=== PATIENT | male | born 1955 | race Caucasian/White ===

== ENCOUNTER 2016-09-15 10:21 | Inpatient (IN) | payer OTHER ==
[2016-09-15] VITALS (20 sets, daily range): BP systolic 95–126; BP diastolic 54–91; PULSE 68–93; RESP 10–23; Ht 180.3 cm; Wt 84.0 kg
[~2016-09-15] VITALS: Ht 180.3 cm; Wt 84.0 kg
[2016-09-15 10:55] LABS: ADD SCAN DIFF NO
[2016-09-15 10:58] LABS: BASOPHIL # 0.1 10^3/ul (0.0-0.1); BASOPHILS % 0.6 % (0.0-2.0); EOSINOPHILS # 0.3 10^3/ul (0.0-0.5); EOSINOPHILS % 3.5 % (0.0-7.0); HEMATOCRIT 43.5 % (42.0-52.0); HEMOGLOBIN 14.4 g/dl (14.0-18.0); LYMPHOCYTES # 2.2 10^3/ul (0.8-2.9); LYMPHOCYTES % 27.5 % (15.0-51.0); MEAN CORPUSCULAR HEMOGLOBIN 29.7 pg (29.0-33.0); MEAN CORPUSCULAR HGB CONC 33.1 g/dl (32.0-37.0); MEAN CORPUSCULAR VOLUME 89.7 fl (82.0-101.0); MEAN PLATELET VOLUME 11.1 fl (7.4-10.4); MONOCYTE # 0.6 10^3/ul (0.3-0.9); MONOCYTES % 7.2 % (0.0-11.0); NEUTROPHIL # 4.9 10^3/ul (1.6-7.5); NEUTROPHILS % 60.8 % (39.0-77.0); PLATELET COUNT 216 10^3/UL (140-415); RED BLOOD COUNT 4.85 10^6/ul (4.70-6.10); RED CELL DISTRIBUTION WIDTH 13.9 % (11.5-14.5); WHITE BLOOD COUNT 8.1 10^3/ul (4.8-10.8)
[2016-09-15 11:12] LABS: ALBUMIN 4.6 g/dl (3.3-4.9)
[2016-09-15 11:13] LABS: POTASSIUM 4.7 mmol/L (3.5-5.1)
[2016-09-15 11:15] LABS: ALBUMIN/GLOBULIN RATIO 1.43; BILIRUBIN,INDIRECT 0.3 mg/dl (0-1.1); BILIRUBIN,TOTAL 0.3 mg/dl (0.2-1.3); TOTAL PROTEIN 7.8 g/dl (6.1-8.1)
[2016-09-15 11:18] LABS: CALCIUM 9.4 mg/dl (8.4-10.2); CREATININE 0.77 mg/dl (0.61-1.24)
[2016-09-15 11:24] LABS: INR 0.97; PROTIME 12.9 Sec (12.2-14.2)
[2016-09-15] MEDS ORDERED: MIDAZOLAM 1 MG/ML 2 ML INJ ONE ×2 (11:27→11:54)
[2016-09-15] MEDS ORDERED: LIDOCAINE 1% (MDV) 20 ML INJ ONE (11:27)
[2016-09-15] MEDS ORDERED: IODIXANOL LOCM 100 ML BTL ONE (11:27)
[2016-09-15] MEDS ORDERED: HEPARIN 1000 UNITS/ML 10 ML INJ ONE (11:27)
[2016-09-15] MEDS ORDERED: FENTAnyl 50 MCG/ML VIAL ONE (11:27)
[2016-09-15] MEDS ORDERED: VERAPAMIL 5 MG INJ ONE (11:32)
[2016-09-15] MEDS ORDERED: NITROGLYCERIN (IC) 100 MCG/ML INJ ONE (11:32)
[2016-09-15] MEDS ORDERED: SOD CHLORIDE 0.9% 500 ML ONE (11:54)
[2016-09-15] MEDS ORDERED: IOHEXOL 350MG/ML 50 ML BTL ONE (12:01)
[2016-09-15] MEDS ORDERED: ASPI81TA3 PO (12:20)
[2016-09-15] MEDS ORDERED: NICO1PAT6 TD (12:20)
[2016-09-15] MEDS ORDERED: ATOR40TA68 PO (12:20)
[2016-09-15] MEDS ORDERED: ONDA4SOL IV (12:20)
[2016-09-15] MEDS ORDERED: CARV3.1260 PO (12:20)
[2016-09-15] MEDS ORDERED: ACET-2047 PO (12:20)
[2016-09-15] MEDS ORDERED: NITR1PAT46 TD (12:20)
[2016-09-15] MEDS ORDERED: PANT40TA4 PO (12:20)
[2016-09-15] MEDS ORDERED: METO-448 PO (12:20)
[2016-09-15] MEDS ORDERED: TICAGRELOR 90 MG TABLET ONE (12:30)
[2016-09-15] MEDS ORDERED: ASPIRIN 325 MG TAB ONE (12:30)
[2016-09-15 12:34] LABS: PARTIAL THROMBOPLASTIN TIME 28.1 Sec (25.0-35.0)
[2016-09-15] MEDS ORDERED: SOD CHLORIDE 0.9% 1,000 ML IV SCH (12:48)
[2016-09-15] MEDS ORDERED: ZOLPIDEM 5 MG TAB PO PRN (13:00)
[2016-09-15] MEDS ORDERED: OXYCODONE/ACETAMINOPHEN (5/325) TAB PO PRN (13:00)
[2016-09-15] MEDS ORDERED: AL HYDROX/MG HYDROX/SIMETH 30 ML CUP PO PRN (13:00)
[2016-09-15] MEDS ORDERED: ACETAMINOPHEN 325 MG TAB PO PRN (13:00)
[2016-09-15] MEDS ORDERED: ONDANSETRON 4 MG INJ IV PRN (13:00)
--- NOTE | 2016-09-15 13:59 | CARRPT ---
DATE OF PROCEDURE: 09/15/2016 TYPE OF PROCEDURE: 1. Left heart catheterization. 2. Coronary angiography. 3. The measure of left ventricular end diastolic pressure. 4. Percutaneous transluminal coronary angioplasty with placement of drug-eluting stent x1 to proxim al to mid LAD, 3.0 x 28 mm compliant. 5. Percutaneous transluminal coronary angioplasty with placement of drug-eluting stent x1 to mid ci rcumflex 2.5 x 8 mm Hallock surgery. ATTENDING PHYSICIAN: Tito Jameson MD REFERRING PHYSICIAN: Dr. Elton Heller. TYPE OF ANESTHESIA: Conscious and local. INDICATION: Non-ST elevation myocardial infarction. BRIEF HISTORY: Mr. Rice is a 61-year-old male with history of hypertension, dyslipidemia, ina oing tobacco usage, who initially presented to [facility] with complaints of subst ernal chest pain and subsequently ruled in for a non-ST elevation myocardial infarction. The patien t subsequently placed on maximal medical therapy and has been transferred to [facility] in order to undergo left heart catheterization to assess for the possibility of significant ob structive coronary artery disease lending to symptoms of chest pain and subsequent non-ST myocardial infarction. PROCEDURE: After informed consent was obtained, the patient went to [facility] catheterization lab where his right radial area was prepped and draped in usual sterile fashio n. 2% lidocaine was infiltrated in order to achieve adequate local anesthesia. With modified Seldi nger technique, the right radial artery was cannulated and a 6-Dutch arterial sheath was placed. A 5-Dutch JL3.5 catheter was used to cannulate the left main coronary ostium. With contrast injecti on, multiple views of the left coronary arterial system were obtained. JL4 guidewire and JR4 was us ed to cannulate the right coronary arterial ostium. With contrast injection, multiple views of the right coronary arterial system obtained. JR4 was removed over a guidewire and a 6-Dutch pigtail wa s passed down the ascending aorta and placed in LV, left ventricular end-diastolic pressure was richie ured, pulled back across the aortic valve to assess for significant gradient, which there was not an d removed. Subsequently, at this time we moved directly to interventional procedure given obstructi ve lesions. The patient received an additional 3000 units of heparin in addition to the 5000 units h e received with his radial cocktail in order to achieve adequate pre-interventional ACT. A 6-Dutch XB LAD3 was used to cannulate the left main coronary ostium. A 0.014 balance middleweight guidewir e was passed distal to the lesion in the LAD. The lesion was ballooned with a 2.0 x 12 mm balloon u p to 20 atmospheres. The balloon was removed and the lesion was stented with a 3.0 x 28 mm drug-elu ting stent deployed at 16 atmospheres, post-dilated with the stent delivery system up to 20 atmosphe res. Stent delivery system was removed. Followup angiogram was obtained revealing excellent deploy ment of stent, ARJUN 3 flow throughout the vessel, no signs of complication including perforation or dissection. Subsequently, at this time, the wire was pulled back and redirected to the lesion in th e mid circumflex. Once it passed this lesion, this lesion was directly stented with a 2.35 x 8 mm Sy nergy drug-eluting stent deployed at 12 atmospheres, postdilated with the stent delivery system up t o 14 atmospheres. The stent delivery system was removed. Followup angiogram was obtained revealing excellent result deployment of the stent, ARJUN 3 flow throughout the vessel, no signs of complicati on including perforation or dissection. Subsequently, at this time, the interventional guide and gu idewire were removed. The patient's sheath was removed. TR band was applied. This completed the p rocedure. There were no noted complications. FINDINGS: Coronary angiography: Left main 4 mm and also 20% stenosis. The LAD proximally is a 3.5 mm vessel and has a long tubular stenosis up to approximately 95%. The LAD has a paucity of diagonals, some v rosamaria small sub 2 mm vessels in the mid portion with no significant focal stenoses. The patient's cir cumflex proximally is a 3 mm vessel and quickly separates into the obtuse marginal branch nearly 3 m m significant focal stenoses, and the circulatory AV groove and has a very focal 80% to 90% stenosis . There is another mid branching obtuse marginal 2 mm vessel with no significant focal stenoses. T he right coronary artery proximally is a 3.5 mm vessel and in the mid portion has tandem 70% to 80% stenosis followed by an ectatic region in the mid portion between the stenoses. Coronary artery is a dominant vessel, gives off a very small PDA sub 2 mm with no significant focal stenoses and a 2.5 mm posterolateral branch with no significant focal stenoses, that can be seen at the posterolateral branch distally it gives a distal collateral flow to the LAD distribution. ____ much of the territo ry at risk and additionally recently from the coronal branch. Measure of left ventricular diastolic pressure of 17 to 19. No significant aortic stenosis by gradi ent. PTCA AND STENT PLACEMENT: Prior to PTCA and stent placement within the patient's LAD. The patient had a long tubular 95% stenosis. Post-PTCA and stent placement, no residual stenosis, but after fur ther review, it seems the patient does have a very small waist in mid portion of the stent and there fore, a staged procedure to consider additional post-steal with no signs of complication including p erforation or dissection and ARJUN 3 flow. PTCA AND STENT PLACEMENT WITHIN THE CIRCUMFLEX. Prior to PTCA and stent placement within the circumf dnaiele, the patient had a focal 80 to 90% stenosis. Post-PTCA and stent placement, no residual stenosi s, ARJUN 3 flow throughout the vessel, no signs of complication including perforation, dissection. TOTAL FLUOROSCOPY TIME: 12.3 minutes. TOTAL CONTRAST: 140 mL. IMPRESSION: 1. Multivessel obstructive coronary artery disease involving a long tubular lesion in the patient's LAD, culprit vessel for ykm-VJ-ltlfjbdld myocardial infarction, very focal lesion in the circumflex and then tandem lesions in the right coronary artery. 2. Successful percutaneous transluminal coronary angioplasty and stent placement x1 to the LAD and x1 to circumflex. 3. Mildly elevated left heart filling pressures, ____ 79. 4. No significant aortic stenosis by gradient. RECOMMENDATIONS: In light of procedure and findings at this time would: 1. Maintain patient on Brilinta 90 mg 1 tab p.o. b.i.d. times at least 1 year. 2. Aspirin 81 mg 1 tab p.o. daily indefinitely. 3. Maximize medical management. 4. Aggressive risk factor reduction. 5. The patient admitted to the ICU for post-intervention observation and continued management of pr esenting symptoms. 6. Depending on ongoing symptoms will be scheduled for a staged procedure at a later date at which time we can intervene upon this patient's right coronary artery and additionally will reassess the p atient's LAD stent and decide if further post-dilatation would be beneficial. ADDENDUM: The patient received 60 minutes of moderate conscious sedation. Dictated By: TITO MARTINEZ/FILIPPO Conf#: [id number] DID#: [id number] CC: ELTON HELLER MD;*EndCC*
--- NOTE | 2016-09-15 14:15 | HP ---
DATE OF ADMISSION: 09/15/2016 REASON FOR ADMISSION: Status post non-ST elevation myocardial infarction. HISTORY OF PRESENT ILLNESS: The patient is a 61-year-old [place] male with a history of nicotine d ependency who smokes up to 2 packs a day, who has not seen a physician for a long time. He presente d to [facility] on 09/11/2016 with concerning left-sided chest pain. Initial tropon in in the ER was negative, but a followup troponin was 2.6, consistent with non-ST elevation myocard ial infarction. The patient was placed on Lovenox 1 mg/kg subcutaneous q. 12, aspirin, statin, nitr oglycerin patch, O2 support and also we placed him on a nicotine patch, as he wanted to go smoke. Ivone Jameson and Dr. Lombardi were consulted and recommended cardiac catheterization. The patient's ches t pain resolved and today he presented to [facility] for cardiac catheterization. Upon discussion with Dr. Jameson, the patient had multivessel disease. The patient underwent stent ing of the LAD and circumflex. The patient overall tolerated the procedure well. He also has lazaro ry artery disease on the RCA. Further intervention may be needed in the future. The procedure was done via right arm radial approach. The patient tolerated the procedure well. No complications. Yahir venegas is currently in the intensive care unit, chest pain free. The patient is admitted for further care. PAST MEDICAL HISTORY: Includes nicotine dependency. MEDICATIONS: He previously took only aspirin p.r.n. ALLERGIES: NO KNOWN DRUG ALLERGIES. SOCIAL HISTORY: He smokes 1.5 to 2 packs a day. Alcohol socially, about 2 to 3 drinks on special o ccasions. IVDA he denies. FAMILY HISTORY: Mother at age 83. Father had cardiac problems. He at age 58 from car diac problems. He had cardiomyopathy. The patient is +2. 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 The patient denies any weight. Patient has never had a colonoscopy. CURRENT MEDICATIONS: Include: 1. Tylenol. 2. Percocet 3. Ambien. 4. Milk of Magnesia. 5. Zofran. 6. Normal saline at 75 mL an hour. PHYSICAL EXAMINATION: VITAL SIGNS: Blood pressure 119/73, pulse 72, respirations 14, saturations 100%. The patient is on 2 liters nasal cannula. GENERAL: Patient is in no acute distress. HEENT: Normocephalic, atraumatic. NECK: No JVD. CARDIOVASCULAR: S1, S2, regular rate. LUNGS: Clear. ABDOMEN: Soft, nontender. EXTREMITIES: Right upper extremity in a special pressure instrument to his right radial area. No a ctive bleeding. Lower extremities no clubbing, cyanosis, or edema. LABORATORY: This was done prior to the procedure: White count 8.1, hemoglobin 14.4, hematocrit 44, platelet count 216, neutrophils 61%, lymphocytes 28%. Chemistry: Sodium 141, potassium 4.7, chlori de 101, bicarbonate 28, BUN is 18, creatinine 0.77, glucose of 107, AST 110, ALT elevated at 132, al kaline phosphatase 72, total protein 7.8, albumin 4.6. INR 0.97. ASSESSMENT AND PLAN: This is a 61-year-old [place] male with a history of nicotine dependency, who presented with a non-ST elevation myocardial infarction, now status post cardiac stenting. 1. Non-ST elevation myocardial infarction. The patient with extensive coronary artery disease, sta tus post stenting of the LAD and circumflex. Further management per Dr. Jameson. The patient likel y will need Plavix or Brilinta, then aspirin, statins, and beta blockers. 2. Nicotine dependency. Continue nicotine patch. Advised him again to stop smoking. 3. Elevated liver function tests. This may be due to statins. Observe. 4. ICU monitoring overnight. The patient is status post Brilinta and aspirin, and received it toda y. 5. Will monitor the patient's symptoms closely. Case discussed with Dr. Jameson. We will follow. Dictated By: ZACHARY GUERRERO/FILIPPO Conf#: [id number] DID#: [id number]
--- NOTE | 2016-09-15 17:40 | RADRPT ---
Vent Rate: 74 bpm RR Interval: 0 msec DE Interval: 146 msec QRS Duration: 88 msec QT Interval: 322 msec QTC Interval: 357 msec P-R-T [place]: 64 - 64 - 78 degrees Normal sinus rhythm Nonspecific T wave abnormality Abnormal ECG Electronically Signed By: Jered Beck [id number]
[2016-09-16] VITALS (25 sets, daily range): BP systolic 91–115; BP diastolic 56–76; PULSE 59–76; RESP 12–25
[2016-09-16 05:28] LABS: ADD SCAN DIFF NO
[2016-09-16 05:34] LABS: BASOPHILS % 0.3 % (0.0-2.0); EOSINOPHILS # 0.2 10^3/ul (0.0-0.5); EOSINOPHILS % 2.6 % (0.0-7.0); HEMATOCRIT 38.9 % (42.0-52.0); HEMOGLOBIN 12.8 g/dl (14.0-18.0); LYMPHOCYTES # 1.5 10^3/ul (0.8-2.9); LYMPHOCYTES % 22.4 % (15.0-51.0); MEAN CORPUSCULAR HEMOGLOBIN 29.2 pg (29.0-33.0); MEAN CORPUSCULAR HGB CONC 32.9 g/dl (32.0-37.0); MEAN CORPUSCULAR VOLUME 88.8 fl (82.0-101.0); MEAN PLATELET VOLUME 11.8 fl (7.4-10.4); MONOCYTE # 0.7 10^3/ul (0.3-0.9); MONOCYTES % 10.7 % (0.0-11.0); NEUTROPHIL # 4.1 10^3/ul (1.6-7.5); NEUTROPHILS % 63.5 % (39.0-77.0); PLATELET COUNT 174 10^3/UL (140-415); RED BLOOD COUNT 4.38 10^6/ul (4.70-6.10); RED CELL DISTRIBUTION WIDTH 14.3 % (11.5-14.5); WHITE BLOOD COUNT 6.5 10^3/ul (4.8-10.8)
[2016-09-16 05:49] LABS: ALBUMIN 3.3 g/dl (3.3-4.9)
[2016-09-16 05:52] LABS: BILIRUBIN,INDIRECT 0.2 mg/dl (0-1.1); BILIRUBIN,TOTAL 0.2 mg/dl (0.2-1.3); TOTAL PROTEIN 5.8 g/dl (6.1-8.1)
[2016-09-16 05:53] LABS: POTASSIUM 3.6 mmol/L (3.5-5.1)
[2016-09-16 05:55] LABS: CREATININE 0.79 mg/dl (0.61-1.24)
[2016-09-16 05:56] LABS: CALCIUM 8.5 mg/dl (8.4-10.2)
[2016-09-16 06:07] LABS: CK-MB 1.49 ng/ml (0.0-2.4)
[2016-09-16 06:09] LABS: TROPONIN-I 0.577 ng/ml (0.00-0.12)
[2016-09-16] MEDS: ASPIRIN 81 MG TAB PO SCH (09:52)
[2016-09-16] MEDS: TICAGRELOR 90 MG TABLET PO SCH ×2 (09:53→20:45)
--- NOTE | 2016-09-16 11:28 | RADRPT ---
Vent Rate: 64 bpm RR Interval: 0 msec MT Interval: 144 msec QRS Duration: 98 msec QT Interval: 370 msec QTC Interval: 381 msec P-R-T [place]: 70 - 64 - 95 degrees Normal sinus rhythm Nonspecific T wave abnormality Abnormal ECG Electronically Signed By: Jered Beck [id number]
--- NOTE | 2016-09-16 12:39 | CONS ---
Date/Time of Note Date/Time of Note DATE: 09/16/16 TIME: 12:35 Assessment/Plan Assessment/Plan Chief Complaint/Hosp Course IMp: 1.Nstemi s/p pTCA/stent x 1 to LAD and x 1 to LCX with ALLYSSA 09/15 2.Chest pain-prior to ptca/stent 3.HOtn-borderline 4.Dyslipidemia 5.Positive tob Recc: -Tele -Contiue asa/Brilinta -start statin and check fasting lipid panel -Low dose BB -Echo to assess EF unless done at [facility] Problems: Consultation Date/Type/Reason Admit Date/Time September 15, 2016 at 13:56 Initial Consult Date 09/15/2016 Type of Consultation: Cardiology Reason for Consultation nstemi Referring Provider: ZACHARY HELLER MD Exam/Review of Systems Vital Signs Vitals Vital Signs Date Time Temp Pulse Resp B/P Pulse Ox O2 Delivery O2 Flow Rate FiO2 09/16/16 12:00 61 09/16/16 10:00 12 102/67 97 Room Air 09/16/16 08:00 98.3 Intake and Output 09/15/16 09/15/16 09/16/16 15:00 23:00 07:00 Intake Total 350 ml 801 ml 300 ml Output Total 350 ml Balance 0 ml 801 ml 300 ml Exam Review of Systems: CONSTITUTIONAL: No fevers, chills. PULMONARY: No sob CARDIOVASCULAR: No chest pain/palpitations GASTROINTESTINAL: No nausea/vomiting. GENITOURINARY: No hematuria/dysuria. MUSCULOSKELETAL: No myagias/arthalgias. PSYCHIATRIC: The patient denies depression. NEUROLOGIC: No weakness Constitutional: alert Psych: no complaints Head: normocephalic ENMT: mucosa pink and moist Neck: supple Respiratory: clear to auscultation Cardiovascular: regular rate and rhythm Gastrointestinal: non-tender, soft Musculoskeletal: muscle tone (normal) Extremities: edema (none) Neurological: other (No focal deficits) Results Result Diagram: 09/16/16 0430 09/16/16 0430 Results 24 hrs Laboratory Tests Test 09/16/16 04:30 White Blood Count 6.5 Red Blood Count 4.38 L Hemoglobin 12.8 L Hematocrit 38.9 L Mean Corpuscular Volume 88.8 Mean Corpuscular Hemoglobin 29.2 Mean Corpuscular Hemoglobin Concent 32.9 Red Cell Distribution Width 14.3 Platelet Count 174 Mean Platelet Volume 11.8 H Neutrophils % 63.5 Lymphocytes % 22.4 Monocytes % 10.7 Eosinophils % 2.6 Basophils % 0.3 Nucleated Red Blood Cells % 0.0 Neutrophils # 4.1 Lymphocytes # 1.5 Monocytes # 0.7 Eosinophils # 0.2 Basophils # 0.0 Nucleated Red Blood Cells # 0.0 Sodium Level 141 Potassium Level 3.6 Chloride Level 106 Carbon Dioxide Level 24 Anion Gap 15 Blood Urea Nitrogen 13 Creatinine 0.79 Glucose Level 124 Calcium Level 8.5 Total Bilirubin 0.2 Direct Bilirubin 0.00 Indirect Bilirubin 0.2 Aspartate Amino Transf (AST/SGOT) 89 H Alanine Aminotransferase (ALT/SGPT) 136 H Alkaline Phosphatase 53 Creatine Kinase 63 Creatine Kinase Index 2.4 Creatinine Kinase MB (Mass) 1.49 Troponin I 0.577 *H Total Protein 5.8 #L Albumin 3.3 # Medications Medications Current Medications Acetaminophen (Tylenol Tab) 650 mg Q4H PRN PO NON-CARDIAC PAIN LEVEL 1-3; Start 09/15/16 at 13:00 Oxycodone/ Acetaminophen (Percocet (5/ 325)) 1 tab Q4H PRN PO REPORTED NON- CARDIAC PAIN 4-7; Start 09/15/16 at 13:00 Al Hydrox/Mg Hydrox/Simethicone (Mag-Al Plus) 30 ml Q4H PRN PO GASTROINTESTINAL UPSET; Start 09/15/16 at 13:00 Ondansetron HCl (Zofran Inj) 4 mg Q4H PRN IV NAUSEA AND/OR VOMITING; Start at 13:00 Aspirin (Aspirin) 81 mg DAILY PO Last administered on 09/16/16 09:52; Admin Dose 81 MG; Start 09/16/16 at 10:00 Ticagrelor (Brilinta) 90 mg BID PO Last administered on 09/16/16 09:53; Admin Dose 90 MG; Start 09/16/16 at 10:00 TITO SANTOS September 16, 2016 12:39
[2016-09-16] MEDS: METOPROLOL (XL) 25 MG TAB PO SCH (14:03)
--- NOTE | 2016-09-16 16:50 | RADRPT ---
Echocardiogram Report Patient Name: ANA JOE Gender: Male Date: 1955 Study Date: 16-Sep-2016 Conductor Yard: Malissa Patel [facility] Location: 114 Ref. Physician: TITO JAMESON Quality: Good Procedures: Transthoracic echocardiogram with complete 2D, M-Mode, and doppler examination. Indications: NSTEMI. 2D/M Mode Doppler Measurement Value Normal Ranges Measurement Value Normal Ranges LVIDd 2D 4.6 3.5 - 5.6 cm AV Peak Rakan 1.2 m/sec LVIDs 2D 2.3 2.1 - 4.1 cm AV Peak PG 6.0 mmHg LVPWd 2D 1.4 0.6 - 1.1 cm LVOT Peak Rakan 0.8 m/sec IVSd 2D 1.4 0.6 - 1.1 cm LVOT Peak PG 2.8 mmHg AoR Diam 2D 3.0 2.0 - 3.7 cm MV E Peak Rakan 0.6 m/sec EDV 2D 98.4 cm3 MV A Peak Rakan 0.6 m/sec ESV 2D 12.7 cm3 MV E/A 1.0 LA Dimen 2D 3.9 2.3 - 4.0 cm MV Decel Time 214 msec MV Decel [place] 3 MV E/A 1.0 TR Peak Rakan 3.1 m/sec TR Peak PG 37.9 mmHg RVSP 41.0 mmHg Findings Left Ventricle: Lower limits of normal systolic function. Normal left ventricular cavity size. Moderate concentric left ventricular hypertrophy. Ejection fraction is visually estimated at 5055 %. Right Ventricle: Normal right ventricular size. Normal right ventricular systolic function. Left Atrium: The left atrium is normal in size. LA Dimension3.90 cm. Right Atrium: The right atrium is normal in size. Mitral Valve: Normal appearance of the mitral valve. Mild mitral annular calcification. Trace mitral regurgitation. Mitral valve Max Velocity 0.62 m/sec. Aortic Valve: No significant aortic stenosis or insufficiency. Aortic cusps appear mildly calcified. Tricuspid Valve: Normal appearance and function of the tricuspid valve with trace physiologic regurgitation. Estimated peak PA systolic pressure 41 mmHg. Pericardium: Normal pericardium with no significant pericardial effusion. Aorta: Normal aortic root. IVC: Normal size and normal respiratory collapse consistent with normal right atrial pressure. Conclusions 1.Lower limits of normal systolic function. Normal left ventricular cavity size. Moderate concentric left ventricular hypertrophy. Ejection fraction is visually estimated at 50-55 %. 2.Normal appearance of the mitral valve. Mild mitral annular calcification. Trace mitral regurgitation. Mitral valve Max Velocity 0.62 m/sec. 3.Normal appearance and function of the tricuspid valve with trace physiologic regurgitation. Estimated peak PA systolic pressure 41 mmHg. Electronically Signed By: Tito Jameson 16-Sep-2016 16:49:35 -0700 Patient Name: ANA JOE Study Date: 16-Sep-2016 [id number]
--- NOTE | 2016-09-16 20:13 | PN ---
DATE: 09/16/2016 SUBJECTIVE: The patient is currently in the intensive care unit, post day #1 PCI of the LAD an d circumflex. The patient is doing well. He denies any chest pain. I noted Dr. Jameson' recommend ations regarding medical management. The patient to be monitored one more day in telemetry uni t as discussed. The patient is undergoing echocardiogram now. PHYSICAL EXAMINATION: VITAL SIGNS: Temperature is 98.3, pulse 61, respirations 12, blood pressure 102/67, saturation 97% on room air. GENERAL: The patient is in no acute distress. HEENT: Normocephalic, atraumatic. NECK: No JVD. CARDIOVASCULAR: S1 and S2, regular rate and rhythm. LUNGS: Clear bilaterally. ABDOMEN: Soft, nontender. EXTREMITIES: No clubbing, cyanosis, or edema. No hematoma is noted in the right radial area. LABORATORY DATA: White count is 6.5, hemoglobin 12.8, hematocrit 39, platelet count is 174, neutrop hils 64%, lymphocytes 22%. Chemistry: Sodium 141, potassium 3.6, chloride 106, bicarbonate 24, BUN is 13, creatinine 0.79, glucose of 124. LFTs are slightly high still, AST 89, ALT 136, this may be due to the statins. Troponin 0.577, trending down actually. Echocardiogram is currently being don e. MEDICATIONS: 1. Lipitor 40 mg at bedtime. 2. Toprol-XL 12.5 daily. 3. Aspirin 81 daily. 4. Brilinta 90 mg b.i.d. 5. Tylenol p.r.n. 6. Percocet p.r.n. 7. Ambien p.r.n. 8. Milk of magnesia p.r.n. 9. Zofran p.r.n. ASSESSMENT AND PLAN: This is a 61-year-old Yi male with history of nicotine dependency, prese nted with non-ST elevation myocardial infarction. 1. Non-ST elevation myocardial infarction, status post percutaneous coronary intervention of the le ft anterior descending and the circumflex. The patient basically had multivessel disease. Continue medical management. Further intervention in the future if needed. Follow up echocardiogram. Cont inue statins, beta blockers, aspirin and Brilinta for at least 1 year. 2. Nicotine dependency. Smoking cessation is advised. 3. Routine health maintenance. The patient advised to follow up with his doctor closely as in the future, he will need a colonoscopy. 4. Transaminitis likely from statins. Observe. 5. Activity as tolerated. DISPOSITION: Hopefully tomorrow. We will follow. Dictated By: ZACHARY GUERRERO/FILIPPO Conf#: [id number] DID#: [id number]
[2016-09-16] MEDS ORDERED: ATORVASTATIN 40 MG TAB PO SCH (21:00)
[2016-09-17] VITALS: PULSE 70
[2016-09-17 03:25] VITALS: BP 109/62; RESP 16
[2016-09-17 04:00] VITALS: PULSE 59
[2016-09-17 07:47] LABS: CHOL/HDL RATIO 3.5 RATIO
[2016-09-17 07:52] LABS: TROPONIN-I 0.212 ng/ml (0.00-0.12)
[2016-09-17 08:15] VITALS: BP 104/63; RESP 17
[2016-09-17] MEDS: ASPIRIN 81 MG TAB PO SCH (08:29)
[2016-09-17] MEDS: TICAGRELOR 90 MG TABLET PO SCH (08:31)
[2016-09-17] MEDS: METOPROLOL (XL) 25 MG TAB PO SCH (08:34)
[2016-09-17 08:40] VITALS: PULSE 73
--- NOTE | 2016-09-17 10:38 | RADRPT ---
Vent Rate: 64 bpm RR Interval: 0 msec [place] Interval: 140 msec QRS Duration: 98 msec QT Interval: 374 msec QTC Interval: 385 msec P-R-T [place]: 68 - 62 - 114 degrees Normal sinus rhythm Nonspecific T wave abnormality Abnormal ECG Electronically Signed By: Live Castro [id number]
--- NOTE | 2016-09-17 11:08 | PDOCDIS ---
Discharge Instructions CONDITION Patient Condition: Guarded HOME CARE INSTRUCTIONS: Special Diet: LOW FAT, LOW CHOLESTEROL ACTIVITY: Activity Restrictions: Slowly Increase Activity FOLLOW UP/APPOINTMENTS Appointments see prescriptions, follow up with PMD and Dr. Jameson within 1-2 weeks, stop smoking ZACHARY HELLER MD September 17, 2016 11:08
[2016-09-17] MEDS ORDERED: METO25TA7 PO (11:13)
[2016-09-17] MEDS ORDERED: ASPI81TA3 PO (11:13)
[2016-09-17] MEDS ORDERED: TICA90TA PO (11:13)
--- NOTE | 2016-09-18 05:39 | DS ---
DATE OF ADMISSION: 09/15/2016 DATE OF DISCHARGE: 09/17/2016 REASON FOR ADMISSION: Acute non-ST elevation myocardial infarction, admitted for cardiac catheteriz ation. HOSPITAL COURSE: The patient is a 61-year-old [place] male with history of nicotine dependency, sm okes up to 2 packs a day. He presented to [facility] on 09/11/2016 complaining of l eft-sided chest pain. Troponin turned out to be positive. The patient was diagnosed with non-ST el evation myocardial infarction. He was treated with Lovenox 1 mg/kg subq q. 12, aspirin, statin, nit roglycerin, O2 support, and had a nicotine patch placed. I consulted Dr. Lombardi and Dr. Jameson. Th e patient was transferred ultimately to [facility]. The patient underwent cardiac catheterization. See exact report. Left main had 20% stenosis. LAD proximally had a long tubular stenosis up to 95%. Obtuse marginal also had an obstruction, another branch of the obtuse marginal had some mild stenosis. The patient ultimately underwent PCI of the LAD and circumflex. The patie nt tolerated the procedure well and was then transferred to the intensive care unit. The patient al so has right coronary artery stenosis, about 70 to 80%, and that can be addressed at a later time. The patient is chest pain free. His troponin actually has been trending down. The last troponin to day was 0.2. Yesterday was 0.5. Initially, it was 2.6. Overall, the patient is doing well. Vital signs are stable. This procedure was done via radial approach. There is no hematoma. The patient is feeling well. He is ambulating well. Throughout his hospitalization, he did not smoke and was placed on nicotine patch. DISCHARGE MEDICATIONS: The patient will be discharged with the following medications 1. Aspirin 81 mg daily. 2. Toprol-XL 12.5 mg daily. 3. Brilinta 90 mg b.i.d. I endorsed to the family and to the patient how crucial it is for him to take it. 4. Lipitor 40 mg at bedtime. 5. Nitroglycerin 0.4 sublingually q. 5 minutes p.r.n. for chest pain plus call MD. 6. Nicotine patch 21 mg daily for 6 weeks, then 14 mg daily for 2 weeks, then 7 mg patch daily for 2 weeks. FINAL DIAGNOSES: 1. Non-ST elevation myocardial infarction. 2. Coronary artery multivessel disease. 3. Dyslipidemia. 4. Transaminitis may be due to statin versus acute myocardial infarction. 5. Nicotine dependency. DISCHARGE INSTRUCTIONS: The patient is instructed to follow with the tire trimmer hand and his primary m edical doctor within 1 to 2 weeks. Any change in condition, worsening chest pain, the patient is to call 911 or go to nearest emergency department. CONDITION ON DISCHARGE: Fair. DIET: Low fat, low carb diet. ACTIVITIES: No smoking is advised. Repeat echocardiogram done here at the hospital done yesterday after the procedure shows EF of 50% t o 55%. Case discussed with family. DISPOSITION: The patient will be discharged today. Dictated By: ZACHARY GUERRERO/FILIPPO Conf#: [id number] DID#: [id number]
== END 2016-09-17 11:50 | disposition home or self-care (01) | DRG 247 ==
LOC: CCL 10:21 → ICU 13:10 → CCL 13:56 → ICU 13:56 → TEL 09-16 23:15
PROVIDERS: ADMIT Internal Medicine; ATTEND Internal Medicine
PROC: B211YZZ Fluoroscopy of Multiple Coronary Arteries using Other Contrast (ICD-10-PCS; 2016-09-15)
PROC: 027135Z Dilation of Coronary Artery, Two Arteries with Two Drug-eluting Intraluminal Devices, Percutaneous Approach (ICD-10-PCS; principal; 2016-09-15 10:30)
PROC: 4A023N7 Measurement of Cardiac Sampling and Pressure, Left Heart, Percutaneous Approach (ICD-10-PCS; 2016-09-15 10:30)
DX: I21.4 Non-ST elevation (NSTEMI) myocardial infarction (principal); E78.5 Hyperlipidemia, unspecified; I25.10 Atherosclerotic heart disease of native coronary artery without angina pectoris; F17.210 Nicotine dependence, cigarettes, uncomplicated; R74.0 Nonspecific elevation of levels of transaminase and lactic acid dehydrogenase [LDH]; T46.6X5A Adverse effect of antihyperlipidemic and antiarteriosclerotic drugs, initial encounter; Y92.89 Other specified places as the place of occurrence of the external cause
CPT/HCPCS: 80048; 80053; 80061; 80076; 82550; 82553; 84484; 85025; 85610; 85730; 93005; 93306; 93458; C1725; C1769; C1874; C1876; C1887; J1644; J2250; J3010; J7040; Q9967

== ENCOUNTER 2017-03-03 07:50 | Observation (INO) | payer OTHER ==
[~2017-03-03] VITALS: Ht 177.8 cm; Wt 85.0 kg
[2017-03-03] VITALS (8 sets, daily range): BP systolic 98–121; BP diastolic 57–66; PULSE 51–62; RESP 16–18; TEMP 97.4; Ht 177.8 cm; Wt 85.0 kg
[~2017-03-03 07:50] MED LIST: ACET-2047 PO; ASPI81TA3 PO; ATOR40TA68 PO; METO-335 PO; NICO1PAT6 TD; TICA90TA PO
[2017-03-03] MEDS ORDERED: NITROGLYCERIN 2% 1 GM OINT PKT TD STA (07:53)
[2017-03-03] MEDS ORDERED: ONDANSETRON 4 MG INJ IV STA (07:53)
[2017-03-03] MEDS ORDERED: morphine 4 MG/ML VIAL IV STA (07:53)
[2017-03-03] MEDS ORDERED: NITROGLYCERIN (SL) 0.4 MG TAB SL PRN ×2 (08:00→11:30)
[2017-03-03 08:21] LABS: BASOPHIL # 0.1 10^3/ul (0.0-0.1); BASOPHILS % 0.5 % (0.0-2.0); EOSINOPHILS # 0.4 10^3/ul (0.0-0.5); EOSINOPHILS % 3.1 % (0.0-7.0); HEMATOCRIT 42.7 % (42.0-52.0); LYMPHOCYTES # 3.6 10^3/ul (0.8-2.9); LYMPHOCYTES % 30.2 % (15.0-51.0); MEAN CORPUSCULAR HEMOGLOBIN 29.9 pg (29.0-33.0); MEAN CORPUSCULAR HGB CONC 32.8 g/dl (32.0-37.0); MEAN PLATELET VOLUME 11.2 fl (7.4-10.4); MONOCYTE # 0.9 10^3/ul (0.3-0.9); MONOCYTES % 7.4 % (0.0-11.0); NEUTROPHILS % 58.5 % (39.0-77.0); PLATELET COUNT 225 10^3/UL (140-415); RED BLOOD COUNT 4.69 10^6/ul (4.70-6.10); RED CELL DISTRIBUTION WIDTH 14.3 % (11.5-14.5); WHITE BLOOD COUNT 11.9 10^3/ul (4.8-10.8)
--- NOTE | 2017-03-03 08:27 | RADRPT ---
PROCEDURE: XR Chest. CLINICAL INDICATION: Chest Pain. TECHNIQUE: Single portable view of the chest was obtained COMPARISON: None. FINDINGS: The heart is mildly enlarged. Aortic atherosclerotic disease is present. There is mild pulmonary vas cular congestion. Low lung volumes with lower lobe pulmonary vascular crowding is noted. Bibasilar, left greater than right scar or discoid atelectasis is demonstrated. No evidence of a pneumothorax. IMPRESSION: 1. Bibasilar left greater than right scar discoid atelectasis. 2. Low lung volumes with pulmonary vascular crowding. 3. Mild pulmonary vascular congestion. 4. Mild cardiomegaly with thoracic aortic atherosclerotic disease. RPTAT: HRSR Physician Saira Date Time Electronically viewed and signed by Physician Saira on 03/03/2017 08:27 RR/
[2017-03-03] MEDS ORDERED: HYDROmorphONE 1 MG/ML SYG IV STA (08:35)
[2017-03-03 08:50] LABS: ANION GAP 20 (8-16); BLOOD UREA NITROGEN 14 mg/dl (7-20); CALCIUM 9.9 mg/dl (8.4-10.2); CARBON DIOXIDE 23 mmol/L (21-31); CHLORIDE 105 mmol/L (97-110); CREATININE 0.93 mg/dl (0.61-1.24); GLUCOSE 139 mg/dl (70-220); POTASSIUM 3.8 mmol/L (3.5-5.1); SODIUM 144 mmol/L (135-144)
[2017-03-03 09:04] LABS: TROPONIN-I < 0.012 ng/ml (0.00-0.12)
[2017-03-03] MEDS ORDERED: ONDANSETRON 4 MG INJ IV PRN ×2 (10:30→11:30)
[2017-03-03] MEDS ORDERED: ACETAMINOPHEN 325 MG TAB PO PRN ×2 (10:30→11:30)
--- NOTE | 2017-03-03 10:53 | ERD ---
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 He was brought in by ambulance. He was given aspirin and nitroglycerin by paramedics. He has chest pain which radiates down his left arm. It happened 45 minutes prior to arrival while he was at rest. The pain was 9 out of 10. He describes it as a "achy and pressure-like pain". He says "my heart hurts". He has run out of nitroglycerin at home. ROS All systems reviewed and are negative except as per history of present illness. Medications Home Meds Active Scripts Metoprolol Succinate* (Toprol XL*) 25 Mg Tab.sr.24h, 12.5 MG PO DAILY for 30 Days Prov:ZACHARY HELLER MD 09/17/16 Ticagrelor* (Brilinta*) 90 Mg Tablet, 90 MG PO BID for 30 Days, TAB 6 Refills Prov:ZACHARY HELLER MD 09/17/16 Reported Medications Atorvastatin* (Atorvastatin*) 40 Mg Tablet, 40 MG PO QHS, #30 TAB 09/15/16 Aspirin* (Aspirin* Chew) 81 Mg Tab.chew, 81 MG PO DAILY, TAB.CHEW 09/15/16 Discontinued Reported Medications Acetaminophen* (Acetaminophen*) 650 Mg Tablet, 650 MG PO Q6H Y for MILD PAIN LEVEL 1-3, #30 TAB 09/15/16 Nicotine* (Nicotine* Patch) 21 mg/day Patch, 1 EACH TD DAILY, PATCH 09/15/16 Discontinued Scripts Aspirin (Aspirin) 81 Mg Chew, 81 MG PO DAILY for 30 Days, #30 TAB Prov:ZACHARY HELLER MD 09/17/16 Allergies Allergies: Coded Allergies: No Known Allergy (Unverified , 09/15/16) PMhx/Soc History of Surgery: No Anesthesia Reaction: No Hx Neurological Disorder: No Hx Respiratory Disorders: No Hx Cardiac Disorders: Yes ([place], STENTS) Hx Psychiatric Problems: No Hx Miscellaneous Medical Probl: No Hx Alcohol Use: Yes Hx Substance Use: No Hx Tobacco Use: Yes (1 PPD) Smoking Status: Current every day smoker FmHx Family History: coronary disease Physical Exam Vitals Vital Signs Date Time Temp Pulse Resp B/P Pulse Ox O2 Delivery O2 Flow Rate FiO2 11/10/17 10:41 97.4 58 17 105/67 99 Nasal Cannula 2.0 03/03/17 08:02 96.7 51 10 122/79 100 03/03/17 08:02 Nasal Cannula 2 Physical Exam Const: Moderate distress Head: Atraumatic Eyes: Normal Conjunctiva ENT: Normal External Ears, Nose and Mouth. Neck: Full range of motion..~ No meningismus. Resp: Clear to auscultation bilaterally Cardio: Regular rate and rhythm, no murmurs Abd: Soft, non tender, non distended. Normal bowel sounds Skin: Pale and diaphoretic Back: No midline or flank tenderness Ext: No cyanosis, or edema Neur: Awake and alert Psych: Normal Mood and Affect Result Diagram: 03/03/1780403/03/17804 Results 24 hrs Laboratory Tests Test 03/03/17 08:05 White Blood Count 11.910^3/ul Red Blood Count 4.6910^6/ul Hemoglobin 14.0g/dl Hematocrit 42.7% Mean Corpuscular Volume 91.0fl Mean Corpuscular Hemoglobin 29.9pg Mean Corpuscular Hemoglobin Concent 32.8g/dl Red Cell Distribution Width 14.3% Platelet Count 19790^3/UL Mean Platelet Volume 11.2fl Neutrophils % 58.5% Lymphocytes % 30.2% Monocytes % 7.4% Eosinophils % 3.1% Basophils % 0.5% Nucleated Red Blood Cells % 0.0/100WBC Neutrophils # 7.010^3/ul Lymphocytes # 3.610^3/ul Monocytes # 0.910^3/ul Eosinophils # 0.410^3/ul Basophils # 0.110^3/ul Nucleated Red Blood Cells # 0.010^3/ul Sodium Level 144mmol/L Potassium Level 3.8mmol/L Chloride Level 105mmol/L Carbon Dioxide Level 23mmol/L Anion Gap 20 Blood Urea Nitrogen 14mg/dl Creatinine 0.93mg/dl Glucose Level 139mg/dl Calcium Level 9.9mg/dl Troponin I < 0.012ng/ml Current Medications Medications (Trade) Dose Ordered Sig/Jessica Route PRN Reason Start Time Stop Time Status Last Admin Dose Admin Nitroglycerin (Nitroglycerin 2% Oint) 1 inch ONCE STAT TD 03/03/17 07:53 03/03/17 07:54 DC 03/03/17 08:13 Nitroglycerin (Nitroglycerin (Sl Tab) 0.4 Mg) 1 tab Q5M UP TO 3 DOSES PRN SL CHEST PAIN 03/03/17 08:00 Morphine Sulfate (morphine) 4 mg ONCE STAT IV 03/03/17 07:53 03/03/17 07:54 DC 03/03/17 08:13 Ondansetron HCl (Zofran Inj) 4 mg ONCE STAT IV 03/03/17 07:53 03/03/17 07:54 DC 03/03/17 08:13 Hydromorphone HCl (Dilaudid) 1 mg ONCE STAT IV 03/03/17 08:35 03/03/17 08:36 DC 03/03/17 09:02 Ondansetron HCl (Zofran Inj) 4 mg ER BRIDGE PRN IV NAUSEA AND/OR VOMITING 03/03/17 10:30 03/04/17 10:29 Acetaminophen (Tylenol Tab) 650 mg ER BRIDGE PRN PO MILD PAIN/FEVER 03/03/17 10:30 03/04/17 10:29 Procedures/MDM EKG #1 read by me: Rate/Rhythm: Regular rate and rhythm at a normal rate Intervals: Normal Impression: ST depressions in the inferior leads without ST elevations EKG #2 read by me: Rate/Rhythm: Regular rate and rhythm at a normal rate Intervals: Normal Impression: ST depressions in the inferior leads without ST elevations PROCEDURE: XR Chest. CLINICAL INDICATION: Chest Pain. TECHNIQUE: Single portable view of the chest was obtained COMPARISON: None. FINDINGS: The heart is mildly enlarged. Aortic atherosclerotic disease is present. There is mild pulmonary vascular congestion. Low lung volumes with lower lobe pulmonary vascular crowding is noted. Bibasilar, left greater than right scar or discoid atelectasis is demonstrated. No evidence of a pneumothorax. IMPRESSION: 1. Bibasilar left greater than right scar discoid atelectasis. 2. Low lung volumes with pulmonary vascular crowding. 3. Mild pulmonary vascular congestion. 4. Mild cardiomegaly with thoracic aortic atherosclerotic disease. RPTAT: HRSR Physician Saira Date Time Electronically viewed and signed by Maida Pham Physician on 03/03/2017 08 :27 Smoking Cessation Therapy: Pt. was lectured for greater than 3 minutes on the health risks of continued smoking and the benefits of cessation. Patient is a 61-year-old male with multiple cardiac risk factors who presents with chest pain. He has radiation on the left arm. He was given aspirin nitroglycerin by paramedics. He was given morphine and Dilaudid for pain in the emergency department. I am concerned for possible acute coronary syndrome. I doubt pneumonia, pneumothorax, embolism, or aortic dissection. The patient will be admitted to the care of Dr. Toribio from the [place] team. Dr. Jameson has been consulted on this patient and I am awaiting a callback at this time. The patient has multiple critical risk factors and is at high risk for cardiac lesion. Departure Diagnosis: Primary Impression: Chest pain Chest pain type: unspecified Qualified Code: R07.9 - Chest pain, unspecified type Condition: FLACO Avalos MD Mar 03, 2017 10:53
[2017-03-03] MEDS: METOPROLOL (XL) 25 MG TAB PO SCH (11:30)
[2017-03-03] MEDS ORDERED: morphine 2 MG INJ IV PRN (11:30)
[2017-03-03] MEDS ORDERED: BISACODYL 10 MG SUPP PR PRN (11:30)
[2017-03-03] MEDS ORDERED: NACL 0.9% 3 ML SYG IV SCH (11:30)
[2017-03-03] MEDS ORDERED: MAGNESIUM HYDROXIDE 30ML CUP PO PRN (11:30)
[2017-03-03] MEDS ORDERED: DOCUSATE SODIUM 100 MG CAP PO PRN (11:30)
--- NOTE | 2017-03-03 12:52 | HP ---
Date/Time of Note Date/Time of Note DATE: 03/03/17 TIME: 12:34 Assessment/Plan VTE Prophylaxis VTE Prophylaxis Intervention: LMWH Lines/Catheters IV [facility] [place] Assessment/Plan Assessment/Plan 61-year-old male with: 1. Left-sided chest pressure with diaphoresis, this is after exertion/sexual activity, patient does have known coronary artery disease, still heavy tobacco user, first troponin is negative, additional troponins are pending, there is significant concern for ACS. Cardiology, Dr. Marte has been consulted Trend cardiac enzymes Check fasting lipid panel in a.m. Patient on beta-blockers but heart rate has been running in the 50s and a systolic in the 90s, Toprol on hold today. Continue aspirin and Brilinta, and Lipitor. Repeat EKG and 2D echocardiogram pending 2. Coronary artery disease, multivessel disease, continue current cardiac medications, evaluate for possible ACS 3. Hyperlipidemia: Check fasting lipid panel, continue Lipitor Prophylaxis: Pepcid for GI prophylaxis, Lovenox for DVT prophylaxis Disposition: Cardiology evaluation, evaluate for possible ACS. Admitted to telemetry observation. HPI/ROS Admit Date/Time Admit Date/Time Mar 03, 2017 at 10:03 Hx of Present Illness Chief complaint: Chest pain History of presenting illness: This is a 61-year-old male, known multivessel coronary artery disease, status post stenting LAD and circumflex end of August 2016 after an episode of acute PA, tobacco user who was brought into the emergency department this morning after having an episode of severe left-sided chest pressure. Patient was brought in with his , the is given giving most of the history due to language barrier. The reports that after sexual intercourse this morning, the patient few minutes later around 8 AM was complaining of severe left-sided chest pressure 10/10, he was diaphoretic and short of breath, no nausea or vomiting. She gave aspirin and called 911. Patient was given nitroglycerin, in the emergency department he was given a nitro patch, his chest pressure started subsiding. According to the ER physician, when the patient arrived, he was noted to be pale and in significant discomfort, there was even concerned for a possible STEMI from EMS however he is telemetry runs and EKG did not show acute ST changes and his first troponin is negative. Patient has been admitted to a telemetry observation bed for cardiology evaluation and rule out acute coronary syndrome. Dr. Marte was covering for Dr. Jameson has been consulted. Patient is still a heavy tobacco user, at least one pack a day. According to the he has been compliant with medications. Patient denies any other neurological, gastrointestinal, or genitourinary complaints. ROS Constitutional: no complaints Eyes: no complaints ENT: no complaints Respiratory: shortness of breath (Resolved) Cardiovascular: chest pain (Left-sided chest pressure resolved), lightheadedness, other (Diaphoresis) Gastrointestinal: no complaints Genitourinary: no complaints Musculoskeletal: no complaints Skin: no complaints Neurologic: no complaints Endocrine: no complaints Lymphatic: no complaints Psychological: no complaints PMH/Family/Social Past Medical History 1. Coronary artery multivessel disease status post.Non-ST elevation myocardial infarction in August 2016, and stent to mid LAD and mid circumflex placement in August 2016. Apparently there was a possibility that the patient needs a second angiogram 6 months later 2. Dyslipidemia. 3. Heavy tobacco use Past Surgical History Status post PTCA, August 2016 Family History Significant Family History: no pertinent family hx (1 pack a day for at least the past 40 years) Social History Alcohol Use: occasionally Smoking Status: Current every day smoker (Patient smokes 1 to 1.5 pack/day for the past 40 years at least) Drug Use: none Exam/Review of Systems Vital Signs Vitals Vital Signs Date Time Temp Pulse Resp B/P Pulse Ox O2 Delivery O2 Flow Rate FiO2 03/03/17 12:00 51 03/03/17 11:28 98.5 16 98/57 100 03/03/17 10:41 Nasal Cannula 2.0 Exam Constitutional: alert, oriented, well developed Respiratory: clear to auscultation, normal air movement Cardiovascular: nl pulses, regular rate and rhythm Gastrointestinal: non-tender, soft Musculoskeletal: nl extremities to inspection Extremities: normal pulses 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, nl mental status, nl speech, nl strength Labs Result Diagram: 03/03/1780403/03/17804 Medications Medications Current Medications Aspirin (Aspirin) 81 mg DAILY PO ; Start 03/04/17 at 09:00 Atorvastatin Calcium (Lipitor) 40 mg QHS PO ; Start 03/03/17 at 21:00 Metoprolol Succinate (Toprol Xl) 12.5 mg DAILY PO ; Start 03/03/17 at 11:30 Ticagrelor (Brilinta) 90 mg BID PO ; Start 03/03/17 at 21:00 Ondansetron HCl (Zofran Inj) 4 mg Q6H PRN IV NAUSEA AND/OR VOMITING; Start 02/07 at 11:30 Nitroglycerin (Nitroglycerin (Sl Tab) 0.4 Mg) 1 tab Q5M PRN SL CHEST PAIN; Start 03/03/17 at 11:30 Acetaminophen (Tylenol Tab) 650 mg Q6H PRN PO PAIN LEVEL 1-3 OR FEVER; Start 03/03/17 at 11:30 Morphine Sulfate (morphine) 2 mg Q4H PRN IV PAIN LEVEL 7-10; Start 03/03/17 at 11:30 Docusate Sodium (Colace) 100 mg Q12H PRN PO CONSTIPATION; Start 03/03/17 at 11 :30 Magnesium Hydroxide (Milk Of Mag) 30 ml DAILY PRN PO CONSTIPATION; Start 03/03 at 11:30 Bisacodyl (Dulcolax Supp) 10 mg DAILY PRN [place] CONSTIPATION; Start 03/03/17 at 11:30 Famotidine (Pepcid) 20 mg Q12 PO ; Start 03/03/17 at 21:00 Enoxaparin Sodium (Lovenox) 40 mg DAILY SC ; Start 03/04/17 at 09:00 Nicotine (Nicoderm 21 Mg/ 24hr) 1 patch DAILY TRANSDERM ; Start 03/03/17 at 12: 00 Procedures Procedures PROCEDURE: XR Chest. CLINICAL INDICATION: Chest Pain. TECHNIQUE: Single portable view of the chest was obtained COMPARISON: None. FINDINGS: The heart is mildly enlarged. Aortic atherosclerotic disease is present. There is mild pulmonary vascular congestion. Low lung volumes with lower lobe pulmonary vascular crowding is noted. Bibasilar, left greater than right scar or discoid atelectasis is demonstrated. No evidence of a pneumothorax. IMPRESSION: 1. Bibasilar left greater than right scar discoid atelectasis. 2. Low lung volumes with pulmonary vascular crowding. 3. Mild pulmonary vascular congestion. 4. Mild cardiomegaly with thoracic aortic atherosclerotic disease. RPTAT: HRSR Maida Pham Physician Date Time Electronically viewed and signed by Maida Pham, Physician on 03/03/2017 08 :27 EKG: Done twice in the emergency department, showing sinus rhythm with heart rate in the 50s and nonspecific ST and T-wave abnormalities Third EKG pending TOBY BUTLER Mar 03, 2017 12:44
[2017-03-03] MEDS: NICOTINE (21 MG/24 HR) PATCH TRANSDERM SCH (13:21)
--- NOTE | 2017-03-03 14:04 | RADRPT ---
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 Physician: ALPA BUTLER Quality: Technically Difficult Study Procedures: Transthoracic echocardiogram with complete 2D, M-Mode, and doppler examination. Indications: Acute Coronary Syndrome. Chest Pain. 2D/M Mode Doppler Measurement Value Normal Ranges Measurement Value Normal Ranges LVIDd 2D 4.9 3.5 - 5.6 cm AV Peak Rakan 1.3 m/sec LVIDs 2D 2.4 2.1 - 4.1 cm AV Peak PG 6.3 mmHg LVPWd 2D 1.1 0.6 - 1.1 cm LVOT Peak Rakan 0.8 m/sec IVSd 2D 1.0 0.6 - 1.1 cm LVOT Peak PG 2.4 mmHg AoR Diam 2D 2.5 2.0 - 3.7 cm MV E Peak Rakan 0.5 m/sec EDV 2D 114.7 cm3 MV A Peak Rakan 0.6 m/sec ESV 2D 14.6 cm3 MV E/A 0.9 LA Dimen 2D 2.5 2.3 - 4.0 cm MV Decel Time 211 msec MV Decel [place] 2 MV E/A 0.9 TR Peak Rakan 2.2 m/sec TR Peak PG 18.6 mmHg RVSP 22.0 mmHg Findings Left Ventricle: Normal left ventricular systolic function. Normal left ventricular cavity size. Mild concentric left ventricular hypertrophy. Ejection fraction is visually estimated at 65 %. Right Ventricle: Normal right ventricular size. Normal right ventricular systolic function. Left Atrium: The left atrium is normal in size. Right Atrium: The right atrium is normal in size. Mitral Valve: Mitral valve leaflets appear mildly thickened. Mild mitral annular calcification. Trace mitral regurgitation. Aortic Valve: Normal appearance of the aortic valve. No significant aortic stenosis or insufficiency. Tricuspid Valve: Normal appearance of the tricuspid valve. Estimated peak PA systolic pressure 22 mmHg. There is trace tricuspid regurgitation. Pulmonic Valve: Normal pulmonic valve appearance. Pericardium: Normal pericardium with no significant pericardial effusion. Aorta: Normal aortic root. IVC: Normal size and normal respiratory collapse consistent with normal right atrial pressure. Conclusions 1.Normal left ventricular systolic function. Normal left ventricular cavity size. Mild concentric left ventricular hypertrophy. Ejection fraction is visually estimated at 65 %. 2.Mitral valve leaflets appear mildly thickened. Mild mitral annular calcification. Trace mitral regurgitation. 3.Normal appearance of the tricuspid valve. Estimated peak PA systolic pressure 22 mmHg. There is trace tricuspid regurgitation. 4.Normal appearance of the aortic valve. No significant aortic stenosis or insufficiency. Electronically Signed By: Norbert Marte 03-Mar-2017 14:03:18 -0800 Patient Name: ANA JOE Study Date: 03-[id number]
[2017-03-03 15:45] LABS: CK-MB 8.51 ng/ml (0.0-2.4)
[2017-03-03 15:47] LABS: TROPONIN-I 1.39 ng/ml (0.00-0.12)
--- NOTE | 2017-03-03 16:00 | CONS ---
DATE OF ADMISSION: 03/03/2017 DATE OF CONSULTATION: 03/03/2017 HISTORY OF PRESENT ILLNESS: Mr. Rice is a 61-year-old gentleman with multivessel coronary art rosamaria disease, history of stenting of LAD circumflex artery in 08/2016. This potential staged PCI com es to the hospital now for evaluation of chest pain. [facility] and [facility] he had an episode of diaphoresis with chest discomfort. His initial troponin is negative. He has some nonspecific ST-T changes with some septal ST-T changes but no wily chest ranjeet n right now. Given fairly high risk of coronary artery disease as well as continuous tobacco use it would be my advice patient have a left heart catheterization. I offered this to patient and he ref used and I think I will risk stratify the patient with a stress test. If stress test is positive, w e will strongly encourage the patient to reconsider left heart catheterization at that time. For no w, continue medical optimization, we are awaiting second set of troponins. PAST MEDICAL HISTORY: 1. Hypertension. 2. History of dyslipidemia. 3. History of coronary artery disease with drug-eluting stenting to LAD and circumflex artery in e setting of an ST elevation myocardial infarction. 4. Continuous tobacco use. 5. Possible medical noncompliance. ALLERGIES: NO KNOWN DRUG ALLERGIES. SOCIAL HISTORY: The patient does not smoke, does not drink, does not use drugs. FAMILY HISTORY: Negative for sudden cardiac or premature coronary artery disease. MEDICATIONS: 1. The patient is on aspirin 81 mg a day. 2. Lovenox subcutaneous. 3. Lipitor 40 mg p.o. once a day. 4. Brilinta 90 mg p.o. b.i.d. 5. Famotidine. 6. Nicotine patch. 7. Tylenol. 8. Morphine sulfate. REVIEW OF SYSTEMS: CONSTITUTIONAL: No fevers, no chills, no recent weight changes. HEENT: No changes in vision or hearing. RESPIRATORY: No shortness of breath. GASTROINTESTINAL: No nausea, vomiting diarrhea or constipation. GENITOURINARY: He denies dysuria, hematuria. NEUROLOGIC: No focal neurologic deficit. PSYCHIATRIC: No history of psychiatric illness. PHYSICAL EXAMINATION: VITAL SIGNS: Temperature is 98.5, heart rate is 51, blood pressure ____. GENERAL: He is a thin gentleman in no distress, alert and oriented x3, aware of his condition. HEAD: Atraumatic. Eyes anicteric. NECK: Supple. JVD 7-8 cm. There is no lymphadenopathy or thyromegaly. HEART: Regular with soft holosystolic murmur mid chest, change with respiration. PMI is minimally displaced. There is no S3. LUNGS: Coarse at bases. ABDOMEN: Distended, bowel sounds are present. There is no hepatosplenomegaly. GASTROENTEROLOGY/GENITOURINARY: Grossly intact. EXTREMITIES: Show no clubbing, cyanosis. Trace edema. LABORATORY DATA: White blood cell count 11.9, hemoglobin is 14.0, platelets 225. INR is 1.0. His troponin now is less than 0.012 and we are waiting for a second set of troponins, creatinine 0.93. ASSESSMENT AND PLAN: 1. Anginal chest. The patient reports anginal chest pain. Advised the patient to have a left hear t catheterization. He declined for now, but he will have a stress test. We will facilitate his car diac stress test tomorrow. If positive, we will strongly encourage left heart catheterization. 2. Chest pain as described. We will await for second troponin. For now, continue medical therapy. 3. Hypertension. Blood pressure well optimized. 4. History of medical noncompliance. Strongly encouraged to comply with medical therapy. 5. Tobacco use. ____ tobacco use ____ device. I would like to thank Dr. Butler for referring this patient for my evaluation. Dictated By: ALIX ZAVALA MD ML/NTS Conf#: [id number] DID#: [id number] CC: TOBY BUTLER MD;*EndCC*
--- NOTE | 2017-03-03 16:29 | QN ---
Documentation Comment Patient has been a little more agitated this afternoon, he seems to be anxious, he is likely to be craving despite the nicotine patch on board, he is asking to go smoke, then he started saying that he is walking out of the hospital he does not have a heart attack, however the troponin came back positive at 1.39 confirming non-ST elevation GA. The patient, the patient's and the patient's granddaughter have been informed of the findings of non-ST elevation GA with a positive troponin, patient is aware that if he does walk out AGAINST MEDICAL ADVICE and receive no treatment he is at a risk of cardiac arrest and . The patient currently seems to be agreeable to stay, still fairly reluctant with the idea of an angiogram. He agrees to medical treatment for now, we will reorder nicotine patch as he reports to the one he had on and off. Ativan has been ordered for anxiety, patient does have currently some nicotine withdrawal. Dr. Marte from cardiology has been notified. We will start the patient on Lovenox treatment dose, troponins are being trended through the night. We will keep the patient n.p.o. after midnight in case he changes his mind and agrees with angiogram in a.m. TOBY BUTLER Mar 03, 2017 16:29
[2017-03-03] MEDS ORDERED: LORAZEPAM 2 MG INJ IV PRN (16:30)
[2017-03-03] MEDS ORDERED: NICOTINE (21 MG/24 HR) PATCH TRANSDERM ONE (16:30)
[2017-03-03] MEDS: ENOXAPARIN 100 MG/ML SYG SC SCH ×2 (16:57→21:00)
[2017-03-03] MEDS: FAMOTIDINE 20 MG TAB PO SCH (20:21)
[2017-03-03] MEDS: ATORVASTATIN 40 MG TAB PO SCH (20:21)
[2017-03-03] MEDS: TICAGRELOR 90 MG TABLET PO SCH (20:23)
[2017-03-03 20:27] LABS: CK-MB 8.74 ng/ml (0.0-2.4); TROPONIN-I 1.72 ng/ml (0.00-0.12)
[2017-03-04] VITALS (12 sets, daily range): BP systolic 106–123; BP diastolic 62–71; PULSE 64–80; RESP 17–20
[2017-03-04] MEDS: ENOXAPARIN 100 MG/ML SYG SC SCH ×3 (01:02→20:24)
[2017-03-04 02:53] LABS: CK-MB 5.96 ng/ml (0.0-2.4)
[2017-03-04 02:55] LABS: TROPONIN-I 1.36 ng/ml (0.00-0.12)
[2017-03-04 08:42] LABS: ALBUMIN/GLOBULIN RATIO 1.42; BILIRUBIN,INDIRECT 0.2 mg/dl (0-1.1); BILIRUBIN,TOTAL 0.2 mg/dl (0.2-1.3); CALCIUM 8.8 mg/dl (8.4-10.2); CHOL/HDL RATIO 5.1 RATIO; CREATININE 0.98 mg/dl (0.61-1.24); MAGNESIUM 1.7 mg/dl (1.7-2.5); TOTAL PROTEIN 6.8 g/dl (6.1-8.1)
[2017-03-04] MEDS ORDERED: ENOXAPARIN 40 MG/0.4 ML SYG SC SCH (09:00)
[2017-03-04 09:03] LABS: CK-MB 4.38 ng/ml (0.0-2.4); TROPONIN-I 0.926 ng/ml (0.00-0.12)
[2017-03-04] MEDS ORDERED: REGADENOSON 0.4 MG/5 ML SYG ONE (12:50)
--- NOTE | 2017-03-04 13:45 | CONS ---
Date/Time of Note Date/Time of Note DATE: 03/04/17 TIME: 13:44 Assessment/Plan Assessment/Plan Additional Assessment/Plan 1. Anginal chest. The patient reports anginal chest pain. Advised the patient to have a left heart catheterization. He declined - trop peak < 2. - stress test today. 2. Chest pain as described. We will await for second troponin. For now, continue medical therapy. - WILL AWAIT STRESS TEST RESULTS, con't Lovenox for now. 3. Hypertension. Blood pressure well optimized. 4. History of medical noncompliance. Strongly encouraged to comply with medical therapy. 5. Tobacco use. D/C advised. Consultation Date/Type/Reason Admit Date/Time Mar 03, 2017 at 10:03 Initial Consult Date 24 HR Interval Summary Free Text/Dictation continue medical therapy. - WILL AWAIT STRESS TEST RESULTS, con't Lovenox for now. ROS: No fever, no chills, no nausea, no vomiting, no diarrhea/constipation No recent weight changes No chest pain, no PND, no orthopnea No dizziness, blurred vision No thirst, no heat or cold intolerance Exam/Review of Systems Vital Signs Vitals Vital Signs Date Time Temp Pulse Resp B/P Pulse Ox O2 Delivery O2 Flow Rate FiO2 03/04/17 12:08 68 03/04/17 11:06 98.2 20 115/65 97 03/03/17 10:41 Nasal Cannula 2.0 Intake and Output 03/03/17 03/03/17 03/04/17 15:00 23:00 07:00 Intake Total 480 ml 200 ml Output Total 1 ml 1 ml Balance 479 ml 199 ml Exam General: WN/WD/NAD, AOx 3 HEENT: Unicetric/atraumatic/EOMI (follow commands) NECK: JVD elevated, no thyromegaly Lymph: no lymphadenopathy HEART: regular with no S3, II/ systolic murmur at apex LUNGS: Coarse sounds ABD: soft, NT, ND, +BS : Intact Neuro: non focal SKIN: chronic changes EXT: trace edema Results Result Diagram: 03/03/17 0805 03/04/17 0720 Results 24 hrs Laboratory Tests Test 03/03/17 14:13 03/03/17 19:20 03/04/17 01:47 03/04/17 07:20 Creatine Kinase 139 138 110 92 Creatine Kinase Index 6.1 6.3 5.4 4.8 Creatinine Kinase MB (Mass) 8.51 H 8.74 H 5.96 H 4.38 H Troponin I 1.390 *H 1.720 *H 1.360 *H 0.926 *H Sodium Level 142 Potassium Level 4.0 Chloride Level 106 Carbon Dioxide Level 26 Anion Gap 14 Blood Urea Nitrogen 12 Creatinine 0.98 Glucose Level 114 Calcium Level 8.8 Magnesium Level 1.7 Total Bilirubin 0.2 Direct Bilirubin 0.00 Indirect Bilirubin 0.2 Aspartate Amino Transf (AST/SGOT) 23 Alanine Aminotransferase (ALT/SGPT) 25 Alkaline Phosphatase 63 Total Protein 6.8 Albumin 4.0 Globulin 2.80 Albumin/Globulin Ratio 1.42 Triglycerides Level 212 H Cholesterol Level 201 H LDL Cholesterol, Calculated 120 HDL Cholesterol 39 Cholesterol/HDL Ratio 5.1 Medications Medications Current Medications Aspirin (Aspirin) 81 mg DAILY PO ; Start 03/04/17 at 09:00 Atorvastatin Calcium (Lipitor) 40 mg QHS PO Last administered on 03/03/17 20: 21; Admin Dose 40 MG; Start 03/03/17 at 21:00 Metoprolol Succinate (Toprol Xl) 12.5 mg DAILY PO ; Start 03/03/17 at 11:30 Ticagrelor (Brilinta) 90 mg BID PO Last administered on 03/03/17 20:23; Admin Dose 90 MG; Start 03/03/17 at 21:00 Ondansetron HCl (Zofran Inj) 4 mg Q6H PRN IV NAUSEA AND/OR VOMITING; Start 02/07 at 11:30 Nitroglycerin (Nitroglycerin (Sl Tab) 0.4 Mg) 1 tab Q5M PRN SL CHEST PAIN; Start 03/03/17 at 11:30 Acetaminophen (Tylenol Tab) 650 mg Q6H PRN PO PAIN LEVEL 1-3 OR FEVER; Start 03/03/17 at 11:30 Morphine Sulfate (morphine) 2 mg Q4H PRN IV PAIN LEVEL 7-10; Start 03/03/17 at 11:30 Docusate Sodium (Colace) 100 mg Q12H PRN PO CONSTIPATION; Start 03/03/17 at 11 :30 Magnesium Hydroxide (Milk Of Mag) 30 ml DAILY PRN PO CONSTIPATION; Start 03/03 at 11:30 Bisacodyl (Dulcolax Supp) 10 mg DAILY PRN [place] CONSTIPATION; Start 03/03/17 at 11:30 Famotidine (Pepcid) 20 mg Q12 PO Last administered on 03/03/17 20:21; Admin Dose 20 MG; Start 03/03/17 at 21:00 Nicotine (Nicoderm 21 Mg/ 24hr) 1 patch DAILY TRANSDERM Last administered on 13:21; Admin Dose 1 PATCH; Start 03/03/17 at 12:00 Lorazepam (Ativan) 1 mg Q6H PRN IV ANXIETY; Start 03/03/17 at 16:30 Enoxaparin Sodium (Lovenox) 85 mg Q12 SC Last administered on 03/04/17 11:16 ; Admin Dose 85 MG; Start 03/03/17 at 16:30 ALIX ZAVALA MD Mar 04, 2017 13:45
--- NOTE | 2017-03-04 14:16 | ECORPT ---
DATE OF SERVICE: REFERRING PHYSICIAN: Toby Butler MD REASON FOR EVALUATION: [id number] myocardial infarction. DESCRIPTION: The patient was brought into the heart station in a fasting condition. The patient moon d successful Lexiscan injection. He had some chest discomfort, but not acute ST-T changes. He tole rated the injection well. The imaging portion of the report will be dictated separately. Dictated By: ALIX ZAVALA MD ML/NTS Conf#: [id number] DID#: [id number] CC: TOBY BUTLER MD;*EndCC*
[2017-03-04] MEDS: FAMOTIDINE 20 MG TAB PO SCH ×2 (14:27→20:21)
[2017-03-04] MEDS: METOPROLOL (XL) 25 MG TAB PO SCH (14:28)
[2017-03-04] MEDS: NICOTINE (21 MG/24 HR) PATCH TRANSDERM SCH (14:29)
[2017-03-04] MEDS: TICAGRELOR 90 MG TABLET PO SCH ×2 (14:31→20:23)
[2017-03-04] MEDS: ASPIRIN 81 MG TAB PO SCH (14:33)
--- NOTE | 2017-03-04 15:03 | PN ---
Date/Time of Note Date/Time of Note DATE: 03/04/17 TIME: 14:58 Assessment/Plan VTE Prophylaxis VTE Prophylaxis Intervention: LMWH Lines/Catheters IV [facility] [place] [employer] line still needed: No Urinary Cath still in place: No Assessment/Plan Assessment/Plan 61-year-old male with: 1. NSTEMI: The patient does have known coronary artery disease, still heavy tobacco user, first troponin is negative, additional troponins elevated, there is significant concern for ACS. Cardiology, Dr. Marte has recommended cath, but the patient refused. Case d/w Dr. Marte. Patient on beta-blockers but heart rate has been running in the 50s and a systolic in the 90s, Toprol on hold today. Continue aspirin and Brilinta, and Lipitor. Lexiscan pending 2. Coronary artery disease, multivessel disease, continue current cardiac medications. 3. Hyperlipidemia: Continue Lipitor Prophylaxis: Pepcid for GI prophylaxis, Lovenox for DVT prophylaxis Disposition: Cardiology evaluation, evaluate for possible ACS. Admitted to telemetry observation. Subjective 24 Hr Interval Summary Free Text/Dictation No significant complaints; refused cardiac catheterization, despite recommendations from Dr. Marte in the setting of NSTEMI. Exam/Review of Systems Vital Signs Vitals Vital Signs Date Time Temp Pulse Resp B/P Pulse Ox O2 Delivery O2 Flow Rate FiO2 03/04/17 12:08 68 03/04/17 11:06 98.2 20 115/65 97 03/03/17 10:41 Nasal Cannula 2.0 Intake and Output 03/03/17 03/03/17 03/04/17 15:00 23:00 07:00 Intake Total 480 ml 200 ml Output Total 1 ml 1 ml Balance 479 ml 199 ml Exam Constitutional: alert, oriented Psych: no complaints Head: normocephalic Eyes: nl conjunctiva ENMT: nl external ears & nose Neck: supple Respiratory: clear to auscultation Cardiovascular: regular rate and rhythm Gastrointestinal: soft Extremities: normal pulses Results Result Diagram: 03/03/17 0805 03/04/17 0720 Results 24 hrs Laboratory Tests Test 03/03/17 19:20 03/04/17 01:47 03/04/17 07:20 Creatine Kinase 138 110 92 Creatine Kinase Index 6.3 5.4 4.8 Creatinine Kinase MB (Mass) 8.74 H 5.96 H 4.38 H Troponin I 1.720 *H 1.360 *H 0.926 *H Sodium Level 142 Potassium Level 4.0 Chloride Level 106 Carbon Dioxide Level 26 Anion Gap 14 Blood Urea Nitrogen 12 Creatinine 0.98 Glucose Level 114 Calcium Level 8.8 Magnesium Level 1.7 Total Bilirubin 0.2 Direct Bilirubin 0.00 Indirect Bilirubin 0.2 Aspartate Amino Transf (AST/SGOT) 23 Alanine Aminotransferase (ALT/SGPT) 25 Alkaline Phosphatase 63 Total Protein 6.8 Albumin 4.0 Globulin 2.80 Albumin/Globulin Ratio 1.42 Triglycerides Level 212 H Cholesterol Level 201 H LDL Cholesterol, Calculated 120 HDL Cholesterol 39 Cholesterol/HDL Ratio 5.1 Medications Medications Current Medications Aspirin (Aspirin) 81 mg DAILY PO Last administered on 03/04/17 14:33; Admin Dose 81 MG; Start 03/04/17 at 09:00 Atorvastatin Calcium (Lipitor) 40 mg QHS PO Last administered on 03/03/17 20: 21; Admin Dose 40 MG; Start 03/03/17 at 21:00 Metoprolol Succinate (Toprol Xl) 12.5 mg DAILY PO Last administered on 14:28; Admin Dose 12.5 MG; Start 03/03/17 at 11:30 Ticagrelor (Brilinta) 90 mg BID PO Last administered on 03/04/17 14:31; Admin Dose 90 MG; Start 03/03/17 at 21:00 Ondansetron HCl (Zofran Inj) 4 mg Q6H PRN IV NAUSEA AND/OR VOMITING; Start 02/07 at 11:30 Nitroglycerin (Nitroglycerin (Sl Tab) 0.4 Mg) 1 tab Q5M PRN SL CHEST PAIN; Start 03/03/17 at 11:30 Acetaminophen (Tylenol Tab) 650 mg Q6H PRN PO PAIN LEVEL 1-3 OR FEVER; Start 03/03/17 at 11:30 Morphine Sulfate (morphine) 2 mg Q4H PRN IV PAIN LEVEL 7-10; Start 03/03/17 at 11:30 Docusate Sodium (Colace) 100 mg Q12H PRN PO CONSTIPATION; Start 03/03/17 at 11 :30 Magnesium Hydroxide (Milk Of Mag) 30 ml DAILY PRN PO CONSTIPATION; Start 03/03 at 11:30 Bisacodyl (Dulcolax Supp) 10 mg DAILY PRN [place] CONSTIPATION; Start 03/03/17 at 11:30 Famotidine (Pepcid) 20 mg Q12 PO Last administered on 03/04/17 14:27; Admin Dose 20 MG; Start 03/03/17 at 21:00 Nicotine (Nicoderm 21 Mg/ 24hr) 1 patch DAILY TRANSDERM Last administered on 14:29; Admin Dose 1 PATCH; Start 03/03/17 at 12:00 Lorazepam (Ativan) 1 mg Q6H PRN IV ANXIETY; Start 03/03/17 at 16:30 Enoxaparin Sodium (Lovenox) 85 mg Q12 SC Last administered on 03/04/17 11:16 ; Admin Dose 85 MG; Start 03/03/17 at 16:30 MAJOR SELF MD Mar 04, 2017 15:03
--- NOTE | 2017-03-04 15:08 | RADRPT ---
Vent Rate: 55 bpm RR Interval: 0 msec IA Interval: 146 msec QRS Duration: 90 msec QT Interval: 396 msec QTC Interval: 378 msec P-R-T [place]: 74 - 52 - 59 degrees Sinus bradycardia possible Septal infarct , age undetermined Abnormal ECG Nonspecific ST-T changes No previous tracing available for comparison Electronically Signed By: Gustavo Gomez [id number]
--- NOTE | 2017-03-04 15:34 | RADRPT ---
PROCEDURE: Lexiscan myocardial perfusion study CLINICAL INDICATION: 61 -year-old patient complaining of chest pain. TECHNIQUE: Lexiscan 0.4 mg intravenously separate acquisition gated myocardial perfusion SPECT usi ng Tc 99m Myoview 33.0 mCi intravenously at stress and Tc-99m Myoview, 9.8 mCi intravenously at rest was performed using the rest/stress sequence. Poststress Myoview SPECT images were obtained in the supine position. COMPARISON: No prior studies. FINDINGS: Perfusion images reveal a moderate size moderate in degree predominantly reversible perfusion defect in the inferior and inferoseptal moyer. Lexiscan post stress gated SPECT images demonstrate no wall motion abnormalities. IMPRESSION: 1. The type and distribution of the scintigraphic abnormalities are most consistent with a moderate size predominantly reversible perfusion defect involving the inferior and inferoseptal moyer. 2. No wall motion abnormalities. 3. The left ventricle ejection fraction at stress is 53%. A call report was made to Dr. Marte at 03:33 p.m. on March 04, 2017. RPTAT: HH .Dina Dixon MD, Date Time Electronically viewed and signed by .Dina Dixon MD, on 03/04/2017 15:34 .L/
[2017-03-04] MEDS: ATORVASTATIN 40 MG TAB PO SCH (20:21)
[2017-03-05] VITALS (8 sets, daily range): BP systolic 109–118; BP diastolic 66–73; PULSE 58–66; RESP 17–20
[2017-03-05 06:39] LABS: BASOPHILS % 0.6 % (0.0-2.0); EOSINOPHILS # 0.2 10^3/ul (0.0-0.5); EOSINOPHILS % 3.2 % (0.0-7.0); HEMATOCRIT 40.8 % (42.0-52.0); HEMOGLOBIN 13.1 g/dl (14.0-18.0); LYMPHOCYTES # 2.6 10^3/ul (0.8-2.9); MEAN CORPUSCULAR HEMOGLOBIN 29.2 pg (29.0-33.0); MEAN CORPUSCULAR HGB CONC 32.1 g/dl (32.0-37.0); MEAN CORPUSCULAR VOLUME 90.9 fl (82.0-101.0); MEAN PLATELET VOLUME 11.4 fl (7.4-10.4); MONOCYTE # 0.7 10^3/ul (0.3-0.9); MONOCYTES % 9.6 % (0.0-11.0); NEUTROPHIL # 3.4 10^3/ul (1.6-7.5); NEUTROPHILS % 49.5 % (39.0-77.0); PLATELET COUNT 188 10^3/UL (140-415); RED BLOOD COUNT 4.49 10^6/ul (4.70-6.10); RED CELL DISTRIBUTION WIDTH 13.9 % (11.5-14.5); WHITE BLOOD COUNT 6.9 10^3/ul (4.8-10.8)
[2017-03-05] MEDS: METOPROLOL (XL) 25 MG TAB PO SCH (08:51)
[2017-03-05] MEDS: TICAGRELOR 90 MG TABLET PO SCH (09:00)
[2017-03-05] MEDS: ENOXAPARIN 100 MG/ML SYG SC SCH (09:02)
[2017-03-05] MEDS: FAMOTIDINE 20 MG TAB PO SCH (09:02)
[2017-03-05] MEDS: ASPIRIN 81 MG TAB PO SCH (09:02)
[2017-03-05] MEDS: NICOTINE (21 MG/24 HR) PATCH TRANSDERM SCH (09:04)
--- NOTE | 2017-03-05 14:37 | CONS ---
Date/Time of Note Date/Time of Note DATE: 03/05/17 TIME: 14:36 Assessment/Plan Assessment/Plan Additional Assessment/Plan 1. Anginal chest. The patient reports anginal chest pain. Advised the patient to have a left heart catheterization. He declined - trop peak < 2. - stress test POSITIVE FOR ischemai - LHC advised - pt wants to leave AMA. BAD IDEA! . 2. Chest pain as described. We will await for second troponin. For now, continue medical therapy. - + stres test, con't Lovenox for now. 3. Hypertension. Blood pressure well optimized. 4. History of medical noncompliance. Strongly encouraged to comply with medical therapy. 5. Tobacco use. D/C advised. Consultation Date/Type/Reason Admit Date/Time Mar 03, 2017 at 10:03 24 HR Interval Summary Free Text/Dictation stress test POSITIVE FOR ischemai - LHC advised - pt wants to leave AMA. BAD IDEA! . If pt leaves, advised to f/up in the office ROS: No fever, no chills, no nausea, no vomiting, no diarrhea/constipation No recent weight changes No chest pain, no PND, no orthopnea No dizziness, blurred vision No thirst, no heat or cold intolerance Exam/Review of Systems Vital Signs Vitals Vital Signs Date Time Temp Pulse Resp B/P Pulse Ox O2 Delivery O2 Flow Rate FiO2 03/05/17 12:07 66 03/05/17 11:25 97.9 20 109/66 99 03/03/17 10:41 Nasal Cannula 2.0 Intake and Output 03/04/17 03/04/17 03/05/17 15:00 23:00 07:00 Intake Total 720 ml 500 ml Output Total 5 ml 3 ml Balance 715 ml 497 ml Exam General: WN/WD/NAD, AOx 3 HEENT: Unicetric/atraumatic/EOMI (follow commands) NECK: JVD elevated, no thyromegaly Lymph: no lymphadenopathy HEART: regular with no S3, II/ systolic murmur at apex LUNGS: Coarse sounds ABD: soft, NT, ND, +BS : Intact Neuro: non focal SKIN: chronic changes EXT: trace edema Results Result Diagram: 03/05/17 0604 03/04/17 0720 Results 24 hrs Laboratory Tests Test 03/05/17 06:04 White Blood Count 6.9 # Red Blood Count 4.49 L Hemoglobin 13.1 L Hematocrit 40.8 L Mean Corpuscular Volume 90.9 Mean Corpuscular Hemoglobin 29.2 Mean Corpuscular Hemoglobin Concent 32.1 Red Cell Distribution Width 13.9 Platelet Count 188 Mean Platelet Volume 11.4 H Neutrophils % 49.5 Lymphocytes % 37.0 Monocytes % 9.6 Eosinophils % 3.2 Basophils % 0.6 Nucleated Red Blood Cells % 0.0 Neutrophils # 3.4 Lymphocytes # 2.6 Monocytes # 0.7 Eosinophils # 0.2 Basophils # 0.0 Nucleated Red Blood Cells # 0.0 Medications Medications Current Medications Aspirin (Aspirin) 81 mg DAILY PO Last administered on 03/05/17 09:02; Admin Dose 81 MG; Start 03/04/17 at 09:00 Atorvastatin Calcium (Lipitor) 40 mg QHS PO Last administered on 03/04/17 20: 21; Admin Dose 40 MG; Start 03/03/17 at 21:00 Metoprolol Succinate (Toprol Xl) 12.5 mg DAILY PO Last administered on 08:51; Admin Dose 12.5 MG; Start 03/03/17 at 11:30 Ticagrelor (Brilinta) 90 mg BID PO Last administered on 03/05/17 09:00; Admin Dose 90 MG; Start 03/03/17 at 21:00 Ondansetron HCl (Zofran Inj) 4 mg Q6H PRN IV NAUSEA AND/OR VOMITING; Start 02/07 at 11:30 Nitroglycerin (Nitroglycerin (Sl Tab) 0.4 Mg) 1 tab Q5M PRN SL CHEST PAIN; Start 03/03/17 at 11:30 Acetaminophen (Tylenol Tab) 650 mg Q6H PRN PO PAIN LEVEL 1-3 OR FEVER; Start 03/03/17 at 11:30 Morphine Sulfate (morphine) 2 mg Q4H PRN IV PAIN LEVEL 7-10; Start 03/03/17 at 11:30 Docusate Sodium (Colace) 100 mg Q12H PRN PO CONSTIPATION; Start 03/03/17 at 11 :30 Magnesium Hydroxide (Milk Of Mag) 30 ml DAILY PRN PO CONSTIPATION; Start 03/03 at 11:30 Bisacodyl (Dulcolax Supp) 10 mg DAILY PRN [place] CONSTIPATION; Start 03/03/17 at 11:30 Famotidine (Pepcid) 20 mg Q12 PO Last administered on 03/05/17 09:02; Admin Dose 20 MG; Start 03/03/17 at 21:00 Nicotine (Nicoderm 21 Mg/ 24hr) 1 patch DAILY TRANSDERM Last administered on 09:04; Admin Dose 1 PATCH; Start 03/03/17 at 12:00 Lorazepam (Ativan) 1 mg Q6H PRN IV ANXIETY; Start 03/03/17 at 16:30 Enoxaparin Sodium (Lovenox) 85 mg Q12 SC Last administered on 03/05/17 09:02 ; Admin Dose 85 MG; Start 03/03/17 at 16:30 ALIX ZAVALA MD Mar 05, 2017 14:37
--- NOTE | 2017-03-05 19:27 | DS ---
DATE OF ADMISSION: 03/03/2017 DATE OF DISCHARGE: 03/05/2017 Please note, the patient left against medical advice despite Dr. Marte speaking to him in detail. DISCHARGE DIAGNOSES: 1. Non-ST elevation myocardial infarction: Unstable. The patient has known coronary artery multiv essel disease with a non-ST elevation myocardial infarction in August 2016. He had stents placed to th e mid left anterior descending and mid circumflex during this time. He returned with chest pain aft er intercourse, and his troponin had been elevated to 1.7. He was consulted by Dr. Marte and had a positive stress test. 2. Tobacco abuse: Current. The patient refuses to quit smoking. 3. Hypertension: Good control on current medications. 4. Noncompliance: The patient refused to have cardiac catheterization during this hospitalization. He had multiple physicians, including myself, speak to him and his about the risk of leaving the hospital and the concern for a larger myocardial infarction and/or cardiogenic shock and/or deat h. The patient still wanted to leave against medical advice despite counseling. 5. Hyperlipidemia: Stable. Will continue the patient on Lipitor. His triglycerides were somewhat high during this admission with a level of 212, total cholesterol of 201, LDL of 120, HDL of 39. HOSPITAL COURSE: The patient is a 61-year-old [place] male with the aforementioned past medical hi story who presented to the emergency department after experiencing chest pain after intercourse. Th e pain was 10/10, left-sided and pressure-like. He was diaphoretic and short of breath but did not have any nausea or vomiting. His gave him aspirin and called 911. The patient was given nitro glycerin in the emergency department as well as a nitro patch. His pain did subside. His troponin did elevate and peaked at approximately 1.720. The patient had a consultation by Dr. Marte who rec ommended cardiac catheterization. The patient refused. The patient also underwent a stress test wh ich was possible for ischemia. Again, left heart catheterization was advised, but the patient wante d to leave against medical advice. This occurred despite extensive counseling by Dr. Marte and mys elf. The patient did not wait for any prescriptions and stated he wanted to go home and follow up w ith his doctor as an outpatient. The patient left against medical advice, and Dr. Marte and the floor nurse did speak to the patient 's family through an integration analyst and they still decided to leave. CONDITION ON DISCHARGE: Stable. DISCHARGE MEDICATIONS: 1. Brilinta 90 mg twice daily. 2. Atorvastatin 40 mg once daily. 3. Toprol 12.5 mg once daily. 4. Aspirin 81 mg once daily. FOLLOWUP VISITS: The patient is to follow up with his primary care physician and [facility] as an outpatient. The patient states that he visits a [facility] in [place] who has known him for vishal jacques. Dictated By: MAJOR SELF MD SH/NTS Conf#: [id number] DID#: [id number] CC: TOBY BUTLER MD;*End*
== END 2017-03-05 14:30 | disposition left against medical advice (07) ==
LOC: E/R 07:50 → TEL 10:03
PROVIDERS: ADMIT Internal Medicine; ATTEND Internal Medicine
DX: I21.4 Non-ST elevation (NSTEMI) myocardial infarction (principal); I25.10 Atherosclerotic heart disease of native coronary artery without angina pectoris; Z95.5 Presence of coronary angioplasty implant and graft; I10 Essential (primary) hypertension; E78.5 Hyperlipidemia, unspecified; Z91.19 Patient's noncompliance with other medical treatment and regimen; Z72.0 Tobacco use; Z79.82 Long term (current) use of aspirin; Z82.49 Family history of ischemic heart disease and other diseases of the circulatory system
CPT/HCPCS: 36415; 71010; 78452; 80048; 80053; 80061; 82550; 82553; 83735; 84484; 85025; 93005; 93017; 93306; 96374; 96375; A9500; A9505; J1170; J1650; J2270; J2405; J2785; Z7500; Z7502; Z7610; G0378